=== PATIENT | female | born 1970 | race African-American/Black ===

== ENCOUNTER 2017-03-22 | Inpatient (IN) | payer SELFPAY ==
[~2017-03-22] VITALS: Ht 162.6 cm; Wt 59.0 kg
[2017-03-22] MEDS ORDERED: SODIUM CHLORIDE 0.9% 1,000 ML IV ONE (00:20)
[2017-03-22] MEDS ORDERED: FAMOTIDINE 20MG/2ML VIAL IV STA (00:20)
[2017-03-22] MEDS ORDERED: MORPHINE SULFATE 4 MG/ML CPJ (NOT FOR IM USE) IV STA (00:20)
[2017-03-22] MEDS ORDERED: ONDANSETRON HCL 4MG/2ML VIAL IV STA (00:20)
[2017-03-22 00:54] LABS: BASOPHILS % 0.9 % (0.0-2.0); EOSINOPHILS % 0.1 % (0.0-5.0); HEMATOCRIT. 42.2 % (36.0-48.0); HEMOGLOBIN. 14.5 g/dL (12.0-16.0); MEAN CORPUSCULAR HEMOGLOBIN 31.8 pg (28.0-32.0); MEAN CORPUSCULAR VOLUME 92.6 fL (81.0-99.0); MEAN PLATELET VOLUME 8.1 fl (7.4-10.4); MONOCYTES % 4.1 % (2.0-8.0); NEUTROPHILS % 86.9 % (40.0-76.0); PLATELET 228 x1000/uL (130-400); RED BLOOD CELL COUNT 4.56 mill/uL (4.2-5.4); RED CELL DISTRIBUTION WIDTH 14.3 % (11.6-14.6)
[2017-03-22 01:01] LABS: PROTHROMBIN TIME 10.5 sec (9.4-11.6)
[2017-03-22 01:02] LABS: CLARITY URINE CLEAR (CLEAR); COLOR URINE YELLOW (YELLOW); GLUCOSE URINE NEGATIVE (NEGATIVE); KETONES URINE 1+ (NEGATIVE); LEUKOCYTE ESTERASE URINE NEGATIVE (NEGATIVE); NITRITE URINE NEGATIVE (NEGATIVE); OCCULT BLOOD URINE NEGATIVE (NEGATIVE); PROTEIN URINE NEGATIVE (NEGATIVE); SPECIFIC GRAVITY URINE 1.016 (1.005-1.030)
[2017-03-22] MEDS ORDERED: KETOROLAC 30MG/ML VIAL IV STA (01:02)
[2017-03-22 01:11] LABS: CARBON DIOXIDE 24 mEq/L (21-32); CHLORIDE 103 mEq/L (98-107); ETHANOL BLOOD < 10 mg/dL; TROPONIN I < 0.02 ng/mL (0.00-0.04)
[2017-03-22 01:12] LABS: *AMPHETAMINES SCREEN URINE NEGATIVE (NEGATIVE); *BARBITURATES SCREEN URINE NEGATIVE (NEGATIVE); *BENZODIAZEPINES SCREEN URINE NEGATIVE (NEGATIVE); *COCAINE SCREEN URINE NEGATIVE (NEGATIVE); CANNABINOID URINE SCREEN NEGATIVE (NEGATIVE); METHADONE URINE SCREEN NEGATIVE (NEGATIVE); OPIATES URINE SCREEN NEGATIVE (NEGATIVE); PHENCYCLIDINE URINE SCREEN NEGATIVE (NEGATIVE)
[2017-03-22 01:13] LABS: HCG SCREEN NEGATIVE
[2017-03-22] MEDS ORDERED: POTASSIUM BICARB/CIT ACID 25 MEQ TABLET.EFF PO SCH (01:45)
[2017-03-22] MEDS ORDERED: FENTANYL CITRATE/PF 50MCG/ML 2ML VIAL IV ONE (03:45)
[2017-03-22] MEDS ORDERED: ONDANSETRON HCL 4MG/2ML VIAL IV ONE (06:30)
[2017-03-22] MEDS ORDERED: MAGNESIUM/ALUMINUM HYDROXIDE/SIMETHICONE 30ML UDC PO PRN (07:00)
[2017-03-22] MEDS ORDERED: CLONIDINE 0.1MG TABLET PO PRN (07:00)
[2017-03-22] MEDS ORDERED: NA PHOS,M-B/NA PHOS,DI-BA ENEMA 118ML PR PRN (07:00)
[2017-03-22] MEDS ORDERED: ACETAMINOPHEN 650MG/20.3ML UDC GT PRN (07:00)
[2017-03-22] MEDS ORDERED: ACETAMINOPHEN 650MG SUPP PR PRN (07:00)
[2017-03-22] MEDS ORDERED: IPRATROPIUM/ALBUTEROL 0.5-3(2.5)MG/3ML NEB INH PRN (07:00)
[2017-03-22 08:30] VITALS: BP 131/86
[2017-03-22] MEDS: ONDANSETRON HCL 4MG/2ML VIAL IV PRN ×2 (09:03→23:45)
[2017-03-22] MEDS: MORPHINE SULFATE 10 MG/ML CPJ IV PRN ×3 (09:55→23:44)
[2017-03-22] MEDS: DEXT 5%/0.45% NACL 1000ML 1,000 ML IV SCH ×2 (10:21→20:28)
[2017-03-22 10:46] VITALS: BP 131/86
[2017-03-22] MEDS ORDERED: INFLUENZA VIRUS VACCINE 0.5ML SYR IM ONE (11:30)
[2017-03-22 12:00] VITALS: BP 141/89
[2017-03-22] MEDS ORDERED: POTASSIUM CHLORIDE INJ 40 MEQ in DEXT 5% WATER 500 ML IV NR (14:00)
[2017-03-22] MEDS: KETOROLAC 30MG/ML VIAL IV PRN ×2 (14:44→20:27)
[2017-03-22 16:00] VITALS: BP 151/82
[2017-03-22] MEDS: SODIUM CHLORIDE 0.9% INJ 3ML FLUSH IVF SCH ×2 (17:51→21:07)
[2017-03-22 20:00] VITALS: BP 143/87
[2017-03-22] MEDS: FAMOTIDINE 20MG/2ML VIAL IV SCH (20:26)
[2017-03-22] MEDS: DIPHENHYDRAMINE 50MG/ML VIAL IV PRN (20:27)
[2017-03-23] VITALS: BP 132/78
[2017-03-23] MEDS: DEXT 5%/0.45% NACL 1000ML 1,000 ML IV SCH ×3 (03:00→23:00)
[2017-03-23] MEDS: KETOROLAC 30MG/ML VIAL IV PRN ×3 (03:31→16:29)
[2017-03-23 04:00] VITALS: BP 130/80
[2017-03-23] MEDS: ONDANSETRON HCL 4MG/2ML VIAL IV PRN ×2 (05:38→16:29)
[2017-03-23] MEDS: SODIUM CHLORIDE 0.9% INJ 3ML FLUSH IVF SCH ×3 (05:38→21:35)
[2017-03-23] MEDS: MORPHINE SULFATE 10 MG/ML CPJ IV PRN ×5 (05:51→20:31)
[2017-03-23 06:50] LABS: BASOPHILS % 0.3 % (0.0-2.0); EOSINOPHILS % 0.2 % (0.0-5.0); HEMOGLOBIN. 12.9 g/dL (12.0-16.0); LYMPHOCYTES % 9.3 % (20.0-50.0); MEAN CORPUSCULAR HEMOGLOBIN 32.2 pg (28.0-32.0); MEAN CORPUSCULAR VOLUME 92.6 fL (81.0-99.0); MEAN PLATELET VOLUME 8.2 fl (7.4-10.4); MONOCYTES % 6.3 % (2.0-8.0); NEUTROPHILS % 83.9 % (40.0-76.0); PLATELET 217 x1000/uL (130-400); RED BLOOD CELL COUNT 4.01 mill/uL (4.2-5.4); RED CELL DISTRIBUTION WIDTH 14.4 % (11.6-14.6)
[2017-03-23 07:23] LABS: HEMATOCRIT. 38.2 % (36.0-48.0)
[2017-03-23 08:00] VITALS: BP 124/71
[2017-03-23 08:35] LABS: CARBON DIOXIDE 25 mEq/L (21-32); CHLORIDE 105 mEq/L (98-107); HDL CHOLESTEROL 70 mg/dL (40-59); LDL CHOLESTEROL 74 mg/dL (5-100)
[2017-03-23] MEDS: FAMOTIDINE 20MG/2ML VIAL IV SCH ×2 (08:54→20:31)
[2017-03-23 12:00] VITALS: BP 118/59
[2017-03-23 16:00] VITALS: BP 137/87
[2017-03-23] MEDS ORDERED: LIDOCAINE HCL 2% JELLY 5ML MM NR (16:00)
[2017-03-23 20:00] VITALS: BP 135/67
[2017-03-24] VITALS: BP 148/76
[2017-03-24] MEDS: MORPHINE SULFATE 10 MG/ML CPJ IV PRN ×5 (00:21→22:24)
[2017-03-24 04:00] VITALS: BP 152/82
[2017-03-24] MEDS: SODIUM CHLORIDE 0.9% INJ 3ML FLUSH IVF SCH ×3 (05:41→22:15)
[2017-03-24] MEDS: KETOROLAC 30MG/ML VIAL IV PRN ×3 (07:47→20:33)
[2017-03-24 08:00] VITALS: BP 156/90
[2017-03-24] MEDS: FAMOTIDINE 20MG/2ML VIAL IV SCH ×2 (10:37→20:32)
[2017-03-24 12:00] VITALS: BP 139/71
[2017-03-24 16:00] VITALS: BP 139/80
[2017-03-24 20:00] VITALS: BP 137/82
[2017-03-24] MEDS: DEXT 5%/0.45% NACL 1000ML 1,000 ML IV SCH (20:34)
[2017-03-25] VITALS: BP 157/86
[2017-03-25] MEDS: KETOROLAC 30MG/ML VIAL IV PRN ×4 (02:56→22:40)
[2017-03-25 04:00] VITALS: BP 125/72
[2017-03-25] MEDS: SODIUM CHLORIDE 0.9% INJ 3ML FLUSH IVF SCH ×2 (05:47→14:00)
[2017-03-25] MEDS: MORPHINE SULFATE 10 MG/ML CPJ IV PRN ×4 (06:52→21:23)
[2017-03-25 08:00] VITALS: BP 124/74
[2017-03-25] MEDS: FAMOTIDINE 20MG/2ML VIAL IV SCH ×2 (09:00→22:34)
[2017-03-25 12:00] VITALS: BP 132/81
[2017-03-25 16:00] VITALS: BP 127/77
[2017-03-25] MEDS: DIPHENHYDRAMINE 50MG/ML VIAL IV PRN (16:24)
[2017-03-25] MEDS: DEXT 5%/0.45% NACL 1000ML 1,000 ML IV SCH (16:24)
[2017-03-25 17:03] LABS: HEMATOCRIT. 41.2 % (36.0-48.0); HEMOGLOBIN. 14.1 g/dL (12.0-16.0); MEAN CORPUSCULAR HEMOGLOBIN 31.7 pg (28.0-32.0); MEAN CORPUSCULAR VOLUME 92.5 fL (81.0-99.0); MEAN PLATELET VOLUME 8.7 fl (7.4-10.4); PLATELET 237 x1000/uL (130-400); RED BLOOD CELL COUNT 4.46 mill/uL (4.2-5.4); RED CELL DISTRIBUTION WIDTH 14.1 % (11.6-14.6)
[2017-03-25 17:21] LABS: CARBON DIOXIDE 29 mEq/L (21-32); CHLORIDE 95 mEq/L (98-107)
[2017-03-25 17:26] LABS: PLATELET ESTIMATE NORMAL
[2017-03-25 20:00] VITALS: BP 125/79
[2017-03-26] VITALS: BP 118/76
[2017-03-26] MEDS: DEXT 5%/0.45% NACL 1000ML 1,000 ML IV SCH ×2 (02:42→12:47)
[2017-03-26] MEDS: MORPHINE SULFATE 10 MG/ML CPJ IV PRN (02:57)
[2017-03-26 04:00] VITALS: BP 127/21
[2017-03-26] MEDS: KETOROLAC 30MG/ML VIAL IV PRN (05:26)
[2017-03-26 08:00] VITALS: BP 92/60
[2017-03-26] MEDS: FAMOTIDINE 20MG/2ML VIAL IV SCH ×2 (08:57→20:17)
[2017-03-26] MEDS ORDERED: DIATR MEGLU/DIATRIZOATE SOLN 120ML ONE (10:52)
[2017-03-26 12:00] VITALS: BP 106/72
[2017-03-26] MEDS: MORPHINE SULFATE 2 MG/ML CPJ (NOT FOR IM USE) IV PRN ×2 (12:48→14:57)
[2017-03-26] MEDS ORDERED: DIGOXIN 500MCG/2ML AMP IV NR ×2 (13:15→16:00)
[2017-03-26] MEDS ORDERED: DILTIAZEM HCL 5MG/ML 5ML VIAL IV NR ×2 (13:15→16:00)
[2017-03-26 13:55] VITALS: BP 111/69
[2017-03-26] MEDS ORDERED: LABETALOL 5MG/ML SYR 20 MG/4 ML SYRINGE IV NR (17:30)
[2017-03-26 20:00] VITALS: BP 117/52
[2017-03-26] MEDS: SODIUM CHLORIDE 0.9% INJ 3ML FLUSH IVF SCH (20:18)
[2017-03-26 20:33] LABS: HEMATOCRIT. 45.2 % (36.0-48.0); HEMOGLOBIN. 15.4 g/dL (12.0-16.0); MEAN CORPUSCULAR HEMOGLOBIN 32.1 pg (28.0-32.0); MEAN CORPUSCULAR VOLUME 94.5 fL (81.0-99.0); MEAN PLATELET VOLUME 9.5 fl (7.4-10.4); PLATELET 289 x1000/uL (130-400); RED BLOOD CELL COUNT 4.79 mill/uL (4.2-5.4); RED CELL DISTRIBUTION WIDTH 14.4 % (11.6-14.6)
[2017-03-26 20:45] LABS: CARBON DIOXIDE 22 mEq/L (21-32); CHLORIDE 96 mEq/L (98-107)
[2017-03-26] MEDS ORDERED: LABETALOL HCL 20MG/4ML CARPUJECT IV SCH (20:45)
[2017-03-26 20:46] LABS: CREATINE KINASE 52 IU/L (26-192)
[2017-03-26 20:52] LABS: TROPONIN I < 0.02 ng/mL (0.00-0.04)
[2017-03-26] MEDS ORDERED: ONDANSETRON HCL 4MG/2ML VIAL IV PRN ×2 (21:30→22:45)
[2017-03-26 22:01] LABS: PLATELET ESTIMATE NORMAL
[2017-03-26] MEDS ORDERED: ALBUMIN HUMAN 12.5GM/50ML (25%) IV ONE (22:10)
[2017-03-26] MEDS ORDERED: BUPIVACAINE HCL 0.5% (5MG/ML) 50ML ONE (22:32)
[2017-03-26] MEDS ORDERED: DEXAMETHASONE 4MG/ML 1ML VIAL ONE (22:41)
[2017-03-26] MEDS ORDERED: PROPOFOL 200MG/20ML VIAL IV ONE (22:41)
[2017-03-26] MEDS ORDERED: CEFAZOLIN SODIUM 1000MG/VIAL ONE (22:41)
[2017-03-26] MEDS ORDERED: ROCURONIUM BROMIDE 10MG/ML VIAL 5ML IV ONE (22:41)
[2017-03-26] MEDS ORDERED: MEPERIDINE HCL/PF 25MG/ML CPJ IV PRN (22:45)
[2017-03-26] MEDS ORDERED: LABETALOL 5MG/ML SYR 20 MG/4 ML SYRINGE IV PRN (22:45)
[2017-03-26] MEDS ORDERED: DEXT 5%/0.45% NACL KCL 20MEQ/L 1,000 ML IV SCH (23:00)
[2017-03-26] MEDS ORDERED: METRONIDAZOLE 500 MG PREMIX 100 ML IV SCH (23:00)
[2017-03-26] MEDS ORDERED: CEFAZOLIN 1000MG PREMIX 50 ML IV SCH (23:00)
[2017-03-26] MEDS ORDERED: GLYCOPYRROLATE 0.2 MG/ML 2ML VIAL ONE (23:11)
[2017-03-26] MEDS ORDERED: NEOSTIGMINE METHYLSULFATE 1MG/ML 10 ML VIAL ONE (23:11)
[2017-03-27] MEDS: HYDROMORPHONE HCL/PF 2MG/ML CPJ IV PRN ×4 (00:02→00:24)
[2017-03-27 01:10] VITALS: BP 111/67
[2017-03-27] MEDS: MORPHINE SULFATE 2 MG/ML CPJ (NOT FOR IM USE) IV PRN ×4 (01:36→19:51)
[2017-03-27] MEDS: CEFAZOLIN 1000MG PREMIX 50 ML IV SCH ×3 (02:06→17:18)
[2017-03-27] MEDS: DEXT 5%/0.45% NACL KCL 20MEQ/L 1,000 ML IV SCH ×2 (02:06→11:17)
[2017-03-27] MEDS: METRONIDAZOLE 500 MG PREMIX 100 ML IV SCH ×3 (02:06→17:18)
[2017-03-27 04:00] VITALS: BP 132/80
[2017-03-27] MEDS: SODIUM CHLORIDE 0.9% INJ 3ML FLUSH IVF SCH ×3 (06:23→20:53)
[2017-03-27 06:25] LABS: HEMATOCRIT. 36.8 % (36.0-48.0); HEMOGLOBIN. 12.5 g/dL (12.0-16.0); MEAN CORPUSCULAR HEMOGLOBIN 32.5 pg (28.0-32.0); MEAN CORPUSCULAR VOLUME 95.5 fL (81.0-99.0); MEAN PLATELET VOLUME 9.4 fl (7.4-10.4); PLATELET 241 x1000/uL (130-400); RED BLOOD CELL COUNT 3.86 mill/uL (4.2-5.4); RED CELL DISTRIBUTION WIDTH 14.4 % (11.6-14.6)
[2017-03-27 08:00] VITALS: BP 137/82
[2017-03-27] MEDS: KETOROLAC 30MG/ML VIAL IV PRN (08:28)
[2017-03-27] MEDS: FAMOTIDINE 20MG/2ML VIAL IV SCH (08:28)
[2017-03-27] MEDS ORDERED: LABETALOL 5MG/ML SYR 20 MG/4 ML SYRINGE IV NR (09:15)
[2017-03-27] MEDS ORDERED: LABETALOL HCL 20MG/4ML CARPUJECT IV NR (09:15)
[2017-03-27 10:46] LABS: CARBON DIOXIDE 22 mEq/L (21-32); CHLORIDE 109 mEq/L (98-107)
[2017-03-27 11:09] LABS: HEMATOCRIT. 34.5 % (36.0-48.0); HEMOGLOBIN. 11.7 g/dL (12.0-16.0); MEAN CORPUSCULAR HEMOGLOBIN 31.9 pg (28.0-32.0); MEAN CORPUSCULAR VOLUME 94.2 fL (81.0-99.0); MEAN PLATELET VOLUME 8.5 fl (7.4-10.4); PLATELET 277 x1000/uL (130-400); RED BLOOD CELL COUNT 3.66 mill/uL (4.2-5.4); RED CELL DISTRIBUTION WIDTH 14.3 % (11.6-14.6)
[2017-03-27 12:00] VITALS: BP 138/82
[2017-03-27 16:00] VITALS: BP 144/82
[2017-03-27] MEDS ORDERED: MAGNESIUM 2 G PREMIX 50 ML IV NR (18:00)
[2017-03-27 19:49] VITALS: BP 139/83
[2017-03-27 19:59] LABS: PLATELET ESTIMATE NORMAL
[2017-03-27 20:14] LABS: PLATELET ESTIMATE NORMAL
[2017-03-27] MEDS ORDERED: ACETAMINOPHEN 325MG SUPP PR PRN (21:00)
[2017-03-28] VITALS (7 sets, daily range): BP systolic 132–160; BP diastolic 70–97
[2017-03-28] MEDS: DEXT 5%/0.45% NACL KCL 20MEQ/L 1,000 ML IV SCH ×3 (04:49→16:19)
[2017-03-28] MEDS: SODIUM CHLORIDE 0.9% INJ 3ML FLUSH IVF SCH ×3 (04:50→20:48)
[2017-03-28] MEDS: ACETAMINOPHEN 650MG SUPP PR PRN ×3 (06:49→18:03)
[2017-03-28] MEDS: FAMOTIDINE 20MG/2ML VIAL IV SCH ×2 (08:47→20:42)
[2017-03-28] MEDS: MORPHINE SULFATE 2 MG/ML CPJ (NOT FOR IM USE) IV PRN ×2 (09:10→20:47)
[2017-03-28 09:35] LABS: HEMATOCRIT. 33.6 % (36.0-48.0); HEMOGLOBIN. 11.6 g/dL (12.0-16.0); MEAN CORPUSCULAR HEMOGLOBIN 31.7 pg (28.0-32.0); MEAN CORPUSCULAR VOLUME 92.3 fL (81.0-99.0); MEAN PLATELET VOLUME 7.9 fl (7.4-10.4); PLATELET 313 x1000/uL (130-400); RED BLOOD CELL COUNT 3.64 mill/uL (4.2-5.4); RED CELL DISTRIBUTION WIDTH 14.5 % (11.6-14.6)
[2017-03-28 09:57] LABS: CARBON DIOXIDE 27 mEq/L (21-32); CHLORIDE 104 mEq/L (98-107)
[2017-03-28 20:40] LABS: PLATELET ESTIMATE NORMAL
[2017-03-28] MEDS: CEFTRIAXONE 1 G PREMIX 50 ML IV SCH (20:41)
[2017-03-29] MEDS: MORPHINE SULFATE 2 MG/ML CPJ (NOT FOR IM USE) IV PRN ×6 (00:46→20:18)
[2017-03-29] MEDS: SODIUM CHLORIDE 0.9% INJ 3ML FLUSH IVF SCH ×3 (03:44→20:24)
[2017-03-29] MEDS: DEXT 5%/0.45% NACL KCL 20MEQ/L 1,000 ML IV SCH ×2 (03:44→16:21)
[2017-03-29 03:58] VITALS: BP 148/83
[2017-03-29 08:00] VITALS: BP 149/86
[2017-03-29] MEDS: FAMOTIDINE 20MG/2ML VIAL IV SCH ×2 (08:12→20:17)
[2017-03-29 12:00] VITALS: BP 148/83
[2017-03-29 16:00] VITALS: BP 144/83
[2017-03-29 20:00] VITALS: BP 151/83
[2017-03-29] MEDS: CEFTRIAXONE 1 G PREMIX 50 ML IV SCH (20:17)
[2017-03-29 20:25] LABS: HEMATOCRIT. 33.9 % (36.0-48.0); HEMOGLOBIN. 11.7 g/dL (12.0-16.0); MEAN CORPUSCULAR HEMOGLOBIN 31.3 pg (28.0-32.0); MEAN CORPUSCULAR VOLUME 90.8 fL (81.0-99.0); MEAN PLATELET VOLUME 7.8 fl (7.4-10.4); PLATELET 279 x1000/uL (130-400); RED BLOOD CELL COUNT 3.73 mill/uL (4.2-5.4); RED CELL DISTRIBUTION WIDTH 14.4 % (11.6-14.6)
[2017-03-29 20:42] LABS: CARBON DIOXIDE 26 mEq/L (21-32); CHLORIDE 104 mEq/L (98-107)
[2017-03-29 21:51] LABS: PLATELET ESTIMATE NORMAL
[2017-03-30] VITALS: BP 152/81
[2017-03-30] MEDS: MORPHINE SULFATE 2 MG/ML CPJ (NOT FOR IM USE) IV PRN ×5 (00:11→20:00)
[2017-03-30] MEDS: DEXT 5%/0.45% NACL KCL 20MEQ/L 1,000 ML IV SCH ×3 (00:12→20:01)
[2017-03-30 04:00] VITALS: BP 158/78
[2017-03-30] MEDS: SODIUM CHLORIDE 0.9% INJ 3ML FLUSH IVF SCH ×3 (04:21→20:01)
[2017-03-30 08:00] VITALS: BP 149/82
[2017-03-30] MEDS: FAMOTIDINE 20MG/2ML VIAL IV SCH ×2 (08:51→20:00)
[2017-03-30 12:00] VITALS: BP 136/96
[2017-03-30 16:00] VITALS: BP 141/82
[2017-03-30 19:29] LABS: BASOPHILS % 0.3 % (0.0-2.0); EOSINOPHILS % 0.8 % (0.0-5.0); HEMATOCRIT. 33.6 % (36.0-48.0); HEMOGLOBIN. 11.6 g/dL (12.0-16.0); LYMPHOCYTES % 7.2 % (20.0-50.0); MEAN CORPUSCULAR HEMOGLOBIN 31.2 pg (28.0-32.0); MEAN CORPUSCULAR VOLUME 90.8 fL (81.0-99.0); MONOCYTES % 10.1 % (2.0-8.0); NEUTROPHILS % 81.6 % (40.0-76.0); PLATELET 237 x1000/uL (130-400); RED CELL DISTRIBUTION WIDTH 14.4 % (11.6-14.6)
[2017-03-30 19:59] LABS: CARBON DIOXIDE 26 mEq/L (21-32); CHLORIDE 102 mEq/L (98-107)
[2017-03-30 20:00] VITALS: BP 141/77
[2017-03-30] MEDS: CEFTRIAXONE 1 G PREMIX 50 ML IV SCH (20:01)
[2017-03-30] MEDS: ACETAMINOPHEN 325MG TABLET PO PRN (20:09)
[2017-03-30] MEDS: ACETAMINOPHEN 650MG SUPP PR PRN (20:16)
[2017-03-31] VITALS: BP 127/68
[2017-03-31] MEDS: MORPHINE SULFATE 2 MG/ML CPJ (NOT FOR IM USE) IV PRN ×4 (00:52→18:34)
[2017-03-31 04:00] VITALS: BP 139/78
[2017-03-31] MEDS: DEXT 5%/0.45% NACL KCL 20MEQ/L 1,000 ML IV SCH ×2 (05:46→12:31)
[2017-03-31] MEDS: SODIUM CHLORIDE 0.9% INJ 3ML FLUSH IVF SCH ×3 (05:47→20:53)
[2017-03-31] MEDS: ACETAMINOPHEN 650MG SUPP PR PRN (07:54)
[2017-03-31 08:00] VITALS: BP 130/79
[2017-03-31] MEDS: FAMOTIDINE 20MG/2ML VIAL IV SCH ×2 (09:15→20:53)
[2017-03-31 12:00] VITALS: BP 142/84
[2017-03-31 16:00] VITALS: BP 132/81
[2017-03-31 20:00] VITALS: BP 130/80
[2017-03-31] MEDS: CEFTRIAXONE 1 G PREMIX 50 ML IV SCH (20:53)
[2017-03-31] MEDS ORDERED: ACETAMINOPHEN 500MG TABLET PO NR (21:45)
[2017-03-31] MEDS ORDERED: ACETAMINOPHEN 325MG TABLET PO PRN (21:45)
[2017-04-01] VITALS: BP 130/79
[2017-04-01] MEDS: DIPHENHYDRAMINE 50MG/ML VIAL IV PRN ×5 (00:56→22:46)
[2017-04-01] MEDS: DEXT 5%/0.45% NACL KCL 20MEQ/L 1,000 ML IV SCH (01:00)
[2017-04-01] MEDS: ACETAMINOPHEN 325MG TABLET PO PRN ×3 (03:26→15:52)
[2017-04-01 04:00] VITALS: BP 134/80
[2017-04-01] MEDS: SODIUM CHLORIDE 0.9% INJ 3ML FLUSH IVF SCH ×3 (05:22→20:07)
[2017-04-01 08:00] VITALS: BP 122/80
[2017-04-01] MEDS: FAMOTIDINE 20MG/2ML VIAL IV SCH ×2 (09:00→20:07)
[2017-04-01 12:00] VITALS: BP 130/74
[2017-04-01 16:00] VITALS: BP 148/83
[2017-04-01 20:00] VITALS: BP 144/84
[2017-04-01] MEDS: CEFTRIAXONE 1 G PREMIX 50 ML IV SCH (20:07)
[2017-04-01] MEDS: ACETAMINOPHEN WITH CODEINE 300/30MG TABLET PO PRN (20:16)
[2017-04-02] VITALS: BP 136/82
[2017-04-02] MEDS: ACETAMINOPHEN WITH CODEINE 300/30MG TABLET PO PRN ×3 (00:33→12:08)
[2017-04-02 04:00] VITALS: BP 117/67
[2017-04-02 08:00] VITALS: BP 120/74
[2017-04-02] MEDS: FAMOTIDINE 20MG/2ML VIAL IV SCH (08:01)
[2017-04-02] MEDS: DIPHENHYDRAMINE 50MG/ML VIAL IV PRN ×2 (08:02→12:07)
[2017-04-02] MEDS: SODIUM CHLORIDE 0.9% INJ 3ML FLUSH IVF SCH (13:59)
[2017-04-02 15:16] VITALS: BP 108/70
== END 2017-04-02 16:20 | disposition home or self-care (01) | DRG 221 ==
LOC: ER → ENRESERV 06:26 → 6EST 08:49 → 7WST 03-26 13:51
PROVIDERS: ADMIT Family Medicine; ATTEND Family Medicine
PROC: 0DB80ZZ Excision of Small Intestine, Open Approach (ICD-10-PCS; 2017-03-26)
PROC: 0DN80ZZ Release Small Intestine, Open Approach (ICD-10-PCS; principal; 2017-03-26 09:30)
DX: K56.50 Intestinal adhesions [bands], unspecified as to partial versus complete obstruction (principal); J18.9 Pneumonia, unspecified organism; I47.1 Supraventricular tachycardia; E87.6 Hypokalemia; Z90.710 Acquired absence of both cervix and uterus
CPT/HCPCS: 36415; 71010; 74000; 74176; 74250; 80048; 80053; 80061; 80305; 81003; 82550; 83036; 83605; 83690; 83735; 83880; 84443; 84484; 84703; 85025; 85610; 87040; 88307; 93005; 93306; 93970; 96361; 96374; 96375; 97116; 97162; 99285; C1893; G0482; J0690; J0696; J1100; J1160; J1170; J1200; J1885; J2270; J2405; J2704; J2710; J3010; J3475; J3480; J3490; J7030; J7040; J7060; P9047; Q9963